=== PATIENT | female | born 1975 | race Caucasian/White ===

== ENCOUNTER 2017-07-28 13:59 | Emergency (ER) | payer OTHER, MEDICARE ==
--- NOTE | 2017-07-28 14:57 | EDM.PDOC ---
ED HPI GENERAL MEDICAL PROBLEM - General Chief Complaint: General Stated Complaint: FELL AND HIT RT [facility] Time Seen by Provider: 07/28/17 14:45 Source of Information: Reports: Patient, Family History Limitations: Reports: No Limitations - History of Present Illness INITIAL COMMENTS - FREE TEXT/NARRATIVE: 42-year-old female with chronic renal disease and colonic disease who has had regular treatments and steroids fell this morning striking her right anterior shoulder on a rock and is having pain with breathing and moving. No shortness of breath area no head injury, neck injury or abdominal pain. Onset: Sudden Duration: Hour(s): (Within the last 2 hours) Location: Reports: Chest, Upper Extremity, Right Severity: Moderate Associated Symptoms: Denies: Nausea/Vomiting, Shortness of Breath - Related Data Allergies Allergy/AdvReac Type Severity Reaction Status Date / Time amitriptyline Allergy Cannot Verified 07/28/17 15:00 Remember ibuprofen Allergy Rash Verified 07/28/17 15:00 minocycline Allergy Cannot Verified 07/28/17 15:00 Remember phenazopyridine Allergy Vomiting Verified 07/28/17 15:00 [From Pyridium] Sulfa (Sulfonamide Allergy Anaphylactic Verified 07/28/17 15:00 Antibiotics) Shock Tetracyclines Allergy Cannot Verified 07/28/17 15:00 Remember tizanidine Allergy Anaphylactic Verified 07/28/17 15:00 Shock Home Meds: Home Meds Cyclobenzaprine [Flexeril] 07/28/17 [History] Escitalopram [Lexapro] 07/28/17 [History] Levonorgestrel-Ethin Estradiol [[place]-28 Tablet] 07/28/17 [History] Nitrofurantoin Macrocrystal [Macrodantin] 07/28/17 [History] Omeprazole 07/28/17 [History] Propranolol [Inderal LA] 07/28/17 [History] buPROPion HCl [Wellbutrin Xl] 07/28/17 [History] hydrOXYzine HCl [hydrOXYzine] 07/28/17 [History] lamoTRIgine [Lamotrigine] 07/28/17 [History] Past Medical History Gastrointestinal History: Reports: Chronic Diarrhea Genitourinary History: Reports: UTI, Recurrent - Past Surgical History HEENT Surgical History: Reports: Tonsillectomy Musculoskeletal Surgical History: Reports: Arthroscopic Knee Social & Family History - Tobacco Use Smoking Status *Q: Never Smoker ED ROS GENERAL - Review of Systems Review Of Systems: See Below Constitutional: Denies: Fever, Chills HEENT: Reports: No Symptoms Respiratory: Reports: Pleuritic Chest Pain Cardiovascular: Reports: Chest Pain (Musculoskeletal right anterior chest) : Reports: Other (Recent steroid treatment for renal disease) Neurological: Reports: No Symptoms. Denies: Paresthesia Psychiatric: Reports: No Symptoms ED EXAM, GENERAL - Physical Exam Exam: See Below Exam Limited By: No Limitations General Appearance: Alert, No Apparent Distress, Other (Looks uncomfortable but not distressed) Head: Atraumatic Neck: Non-Tender Respiratory/Chest: No Respiratory Distress Cardiovascular: Regular Rate, Rhythm Extremities: Other (Exam of the right extremity reveals full passive range of motion. Active range of motion is near full as well but there is some pain with abduction. The medial aspect of the clavicle is tender to palpation but no crepitus or deformity. She also has tenderness to palpation over the anterior aspect of the right chest over the costochondral area but again no bruising or asymmetry) Neurological: Alert, Oriented Course - Vital Signs Last Recorded V/S: Last Vital Signs Temp 97.7 F 07/28/17 14:40 Pulse 73 07/28/17 14:40 Resp 15 07/28/17 14:40 BP 111/86 07/28/17 14:40 Pulse Ox 98 07/28/17 14:40 - Orders/Labs/Meds Orders: Active Orders 24 hr Category Date Time Status Chest 2V [CR] Routine Exams 07/28/17 14:55 Taken - Re-Assessments/Exams Free Text/Narrative Re-Assessment/Exam: 07/28/17 14:57 The two-view chest x-ray was obtained. 07/28/17 15:18 X-ray was negative. Patient continued to have more range of motion and was feeling better. She was provided with 6 hydrocodone for extra pain control over the next 24 hours, encouraged to use cold compresses, and increase activity as tolerated. A copy of the x-ray was given to the patient if she chooses to recheck in the next few days when home. Departure - Departure Time of Disposition: 15:43 Disposition: Home, Self-Care 01 Condition: Good Clinical Impression: Contusion of right chest wall Qualifiers: Encounter type: initial encounter Qualified Code(s): S20.211A - Contusion of right front wall of thorax, initial encounter - Discharge Information Instructions: Chest Contusion, Adult, [id number] Referrals: PCP,None [Primary Care Provider] - Forms: ED Department Discharge Care Plan Goals: Cool compresses to the sore area along with pain control, and increase activity as tolerated over the next several days. Recheck in 3-5 days if not improving satisfactorily, or consider returning sooner if worsening such as difficulty breathing or increased pain. - My Orders Last 24 Hours: My Active Orders 07/28/17 14:55 Chest 2V [CR] Routine - Assessment/Plan Last 24 Hours: My Active Orders 07/28/17 14:55 Chest 2V [CR] Routine
--- NOTE | 2017-07-30 08:54 | CR ---
CHEST: 2 view CLINICAL HISTORY:Dyspnea COMPARISON:None FINDINGS: Heart size and pulmonary vascularity are normal. No infiltrate effusion or pneumothorax is seen. Impression: No acute cardiopulmonary process.
== END 2017-07-28 15:44 | disposition home or self-care (01) ==
LOC: JP.ED 13:59
DX: S20.211A Contusion of right front wall of thorax, initial encounter (principal); Z88.0 Allergy status to penicillin; Z88.2 Allergy status to sulfonamides; Z88.1 Allergy status to other antibiotic agents; Z88.8 Allergy status to other drugs, medicaments and biological substances; W19.XXXA Unspecified fall, initial encounter
CPT/HCPCS: 71046; 71046-26; 99283; 99285

== ENCOUNTER 2023-06-16 11:15 | Emergency (ER) | payer MEDICARE, OTHER | END 2023-06-16 13:38 | disposition home or self-care (01) | LOC: JP.ED 11:15 | DX: S83.91XA Sprain of unspecified site of right knee, initial encounter (principal); S83.92XA Sprain of unspecified site of left knee, initial encounter; S93.401A Sprain of unspecified ligament of right ankle, initial encounter; J45.909 Unspecified asthma, uncomplicated; Z86.16 Personal history of COVID-19; Z79.899 Other long term (current) drug therapy; Z88.8 Allergy status to other drugs, medicaments and biological substances; Z88.2 Allergy status to sulfonamides; Z88.6 Allergy status to analgesic agent; W10.9XXA Fall (on) (from) unspecified stairs and steps, initial encounter | CPT/HCPCS: 735622650; 73562-50; 73610-26-RT; 73610-RT; 99283 ==